=== PATIENT | male | born 1980 | race Caucasian/White ===

== ENCOUNTER 2016-06-19 22:22 | Emergency (ER) | payer OTHER ==
--- NOTE | 2016-06-20 03:47 | ER ---
ADMIT: 06/19/2016 RM/LOC: ER [facility] MR#: [id number] [facility] [id number] [address] [place] [address] Emergency Room Report SEX: M AGE: 36 : 1980 DATE: 06/19/2016 The patient is a 36-year-old male with poor dentition, complains of toothache #29 and 30. Exam remarkable for nontoxic, afebrile male with total dental sera. Obvious periodontal disease and developing abscess #29 and 30. Right inferior alveolar block with good pain relief. Home with pen VK 1 g p.o. in department, 500 mg q.i.d. #28, hydrocodone 5/325 as needed #20 plus 6 from Pyxis. Follow up dentist for extractions. Suresh Espinosa MD/ suellen JOB #: [id number] CC: Suresh Espinosa MD, Attending Physician Christian Parham Jr, MD, Family Physician Ben Parks MD
== END 2016-06-19 23:40 | disposition home or self-care (01) ==
LOC: ER 22:22
PROC: 3E0T3BZ Introduction of Anesthetic Agent into Peripheral Nerves and Plexi, Percutaneous Approach (ICD-10-PCS; principal; 2016-06-19)
DX: K02.9 Dental caries, unspecified (principal); E10.9 Type 1 diabetes mellitus without complications; F17.210 Nicotine dependence, cigarettes, uncomplicated